=== PATIENT | female | born 1955 | race Caucasian/White ===

== ENCOUNTER 2019-11-22 19:50 | Emergency (ER) | payer BC ==
[2019-11-22 20:05] VITALS: O2SAT 97
--- NOTE | 2019-11-22 21:15 | ERPHSYRPT ---
- History of Present Illness Time Seen by Provider: 11/22/19 20:10 Source: patient Exam Limitations: no limitations Patient Subjective Stated Complaint: pt states that she fell out of the back door this morning, pt states that the pain has increased throughtout the day Triage Nursing Assessment: pt ambulated into the er, pt is axo x3, c/o rt ankle injury, states pain 3/10, limp with ambulation, rt ankle swollen, tenderness to ankle and bottom of the foot, strong pedal pulses, good cap refill, hypertensive Physician History: Patient is a 64-year-old female presents to our ED with complaints of pain to her ankle. Patient was walking outdoors carrying bottles of water and ice when she inverted her right ankle while descending a step. Patient felt. No other injuries reported. No BHT or LOC. No neck pain. Cervical spine cleared clinically. Patient denies back hip and knee pain. Pain is located primarily at the lateral aspect of the right ankle. Pain well localized. Pain reproduced with movement and palpation. Pain improved with rest. Patient is otherwise healthy. She voices no other complaints at this time. Patient rates pain 3 out of 10 at rest. Patient declined pain medication. Method of Injury: twisted Occurred: this afternoon Quality: constant Severity of Pain-Max: moderate Severity of Pain-Current: mild Lower Extremities Pain: ankle: right Modifying Factors: Improves With: movement, rest Associated Symptoms: unable to bear weight Allergies/Adverse Reactions: No Known Drug Allergies Allergy (Verified 11/22/19 19:57) Home Medications: Codeine/Butalbital/ASA/Caffein [Ascomp with Codeine Capsule] 1 each PO PRN 05/18/12 [History] Sumatriptan Succinate [Imitrex] 100 mg PO PRN 05/18/12 [History] Aripiprazole [Abilify] 5 mg PO HS 11/22/19 [History] Atorvastatin Calcium 40 mg PO HS 11/22/19 [History] Escitalopram Oxalate [Lexapro] 20 mg PO HS 11/22/19 [History] Losartan Potassium [Cozaar] 50 mg PO HS 11/22/19 [History] Hx Tetanus, Diphtheria Vaccination/Date Given: Yes Hx Influenza Vaccination/Date Given: Yes Hx Pneumococcal Vaccination/Date Given: No Travel Risk - International Travel Have you traveled outside of the country in past 3 weeks: No - Coronavirus Screening Close contact with a COVID-19 positive Pt in past 14-21 Days: No - Review of Systems Constitutional: No Symptoms, No Fever, No Chills Eyes: No Symptoms Ears, Nose, & Throat: No Symptoms Respiratory: No Symptoms, No Cough, No Dyspnea Cardiac: No Symptoms, No Chest Pain, No Edema, No Syncope Abdominal/Gastrointestinal: No Symptoms, No Abdominal Pain, No Nausea, No Vomiting, No Diarrhea Genitourinary Symptoms: No Symptoms, No Dysuria Musculoskeletal: No Symptoms, No Back Pain, No Neck Pain Skin: No Symptoms, No Rash Neurological: No Symptoms, No Dizziness, No Focal Weakness, No Sensory Changes Psychological: No Symptoms Endocrine: No Symptoms Hematologic/Lymphatic: No Symptoms Immunological/Allergic: No Symptoms All Other Systems: Reviewed and Negative - Past Medical History Pertinent Past Medical History: Yes Neurological History: Migraines ENT History: No Pertinent History Cardiac History: Other Respiratory History: No Pertinent History Endocrine Medical History: No Pertinent History Musculoskeletal History: No Pertinent History GI Medical History: No Pertinent History History: No Pertinent History Psycho-Social History: Depression Female Reproductive Disorders: No Pertinent History Other Medical History: RBBB - Past Surgical History Past Surgical History: Yes Neuro Surgical History: No Pertinent History Cardiac: No Pertinent History Respiratory: No Pertinent History Gastrointestinal: Appendectomy Genitourinary: No Pertinent History Musculoskeletal: No Pertinent History Female Surgical History: Hysterectomy Other Surgical History: tubal, sinus surgery, tonsil, breast biopsy - Social History Smoking Status: Never smoker Exposure to second hand smoke: No Drug Use: none Patient Lives Alone: No - Female History Hx Now: No - Nursing Vital Signs Nursing Vital Signs: Initial Vital Signs Temperature 97.4 F 11/22/19 19:57 Pulse Rate 89 11/22/19 19:57 Respiratory Rate 18 11/22/19 19:57 Blood Pressure 167/74 11/22/19 19:57 O2 Sat by Pulse Oximetry 97 11/22/19 19:57 Pain Scale Pain Intensity 3 - Physical Exam General Appearance: alert Eyes, Ears, Nose, Throat Exam: moist mucous membranes Neck Exam: non-tender, supple Cardiovascular/Respiratory Exam: chest non-tender, normal breath sounds, regular rate/rhythm, no respiratory distress Gastrointestinal/Abdominal Exam: non-tender, guarding Back Exam: normal inspection, No vertebral tenderness Hips Exam: bilateral: non-tender, normal inspection, normal range of motion, no evidence of injury Legs Exam: bilateral leg: non-tender, normal inspection, normal range of motion, no evidence of injury Knees Exam: bilateral knee: non-tender, normal inspection, normal range of motion, no evidence of injury Ankle Exam: right ankle: bone tenderness, limited range of motion, pain, swelling (Involved extremities neurovascular intact distally. Compartments are soft. Cap refill less than 2 seconds. Overlying soft tissue intact.), left ankle: non-tender, normal inspection, normal range of motion, no evidence of injury Foot Exam: bilateral foot: non-tender, normal inspection, normal range of motion, no evidence of injury (Mild tenderness at the arch of the left foot. Overlying soft tissue intact. No signs of trauma.) Neuro/Tendon Exam: normal sensation, normal motor functions Mental Status Exam: alert, oriented x 3, cooperative Skin Exam: normal color, warm, dry SpO2 Interpretation: normal SpO2: 97 O2 Delivery: Room Air - Course Nursing assessment & vital signs reviewed: Yes - Radiology Exams Ankle X-ray Interpretation: Interpreted by me (Nondisplaced fracture distal tip of the right fibula.) Ordered Tests: Active Orders 24 hr Category Date Time Status ANKLE (3 VIEWS) Stat Exams 11/22/19 Ordered - Progress Progress: improved Progress Note: 11/22/19 21:17 X-ray reveals fractured distal tip of right fibula. X-ray otherwise within normal limits. The fracture is closed. Patient declined pain medication. Post mold sugar tong placed. Patient declined crutches as she has crutches at home. Patient was wheeled to her vehicle. patient will maintain nonweightbearing until told otherwise by her orthopedic doctor. Patient neurovascular intact distally post splint application patient given a referral to our orthopedic clinic. Plan of care discussed with patient. She agrees to follow-up with orthopedic clinic tomorrow as planned. Patient voices no other complaints concerns at this time. Counseled pt/family regarding: diagnosis, need for follow-up, rad results - Departure Departure Disposition: Home Clinical Impression: Right fibular fracture, Ankle sprain, Fall Condition: Stable Critical Care Time: No Referrals: DOCTOR,NO FAMILY [Primary Care Provider] - Additional Instructions: Discharge/Care Plan GEOFFREY ROPER was seen on 11/22/19 in the Emergency Room. The patient was counseled regarding Diagnosis,Lab results, Imaging studies, need for follow up and when to return to the Emergency Room. Prescriptions given: Discharge Note I have spoken with the patient and/or caregivers. I have explained the patient's condition, diagnosis and treatment plan based on the information available to me at this time. I have answered the patient's and/or caregiver's questions and addressed any concerns. The patient and/or caregivers have as good understanding of the patient's diagnosis, condition and treatment plan as can be expected at t his point. The vital signs have been stable. The patient's condition is stable and appropriate for discharge from the emergency department. The patient will pursue further outpatient evaluation with the primary care physician or other designated or consulting physician as outlined in the discharge instructions. The patient and/or caregivers are agreeable to this plan of care and follow-up instructions have been explained in detail. The patient and/or caregivers have received these instruction. The patient/and or caregivers are aware that any significant change in condition or worsening of symptoms should prompt an immediate return to this or the closest emergency department or call 911. Outpatient Orders: Ortho Referral Time Frame: 1 Day, Facility: [facility], Location: [facility]
[2019-11-22 21:22] VITALS: BP 126/59; PULSE 68
--- NOTE | 2019-11-23 09:00 | XRAY ---
Indication: Pain and swelling following fall. Comparison: None 3 view right ankle demonstrates nondisplaced lateral malleolus tip fracture with anterolateral soft tissue swelling. No other bony, articular, or soft tissue abnormalities.
== END 2019-11-22 21:24 | disposition home or self-care (01) ==
LOC: ED 19:50
DX: S82.401A Unspecified fracture of shaft of right fibula, initial encounter for closed fracture (principal); S93.401A Sprain of unspecified ligament of right ankle, initial encounter; W10.8XXA Fall (on) (from) other stairs and steps, initial encounter
CPT/HCPCS: 73610; 99283

== ENCOUNTER 2021-11-21 08:02 | Emergency (ER) | payer BC ==
[2021-11-21] MEDS ORDERED: BABY ASPIRIN 81 MG CHEW PO ONE (08:15)
[2021-11-21] MEDS ORDERED: Ativan 2 MG/1 ML VIAL IV ONE (08:16)
[2021-11-21 08:19] VITALS: O2SAT 98
[2021-11-21] MEDS ORDERED: Ativan 2 MG/1 ML VIAL ONE (08:21)
[2021-11-21] MEDS ORDERED: BABY ASPIRIN 81 MG CHEW ONE (08:21)
[2021-11-21 08:27] LABS: Absolute Neutrophil Ct (ANC) 1.87 x10^3/uL (1.4-6.9); Basophil (Absolute #) 0.03 x10^3/uL (0-0.4); Eosinophil % 2.3 % (0.00-5.0); Hematocrit 42.4 % (35-47); Hemoglobin 13.9 g/dL (12.0-16.0); Lymphocyte (Absolute #) 1.91 x10^3/uL (1.0-4.6); Lymphocytes % 44.5 % (24.0-44.0); Mean Cell Volume 98.8 fL (78-100); Mean Corpuscular Hemoglobin 32.4 pg (26-32); Mean Corpuscular Hgb Concent. 32.8 g/dL (32-36); Mean Platelet Volume 9.1 fL (7.5-11.0); Monocyte (Absolute #) 0.38 x10^3/uL (0.0-1.3); Monocytes % 8.9 % (0.0-12.0); Neutrophil % 43.6 % (36.0-66.0); Platelet Count 282 x10^3/uL (150-450); Red Blood Count 4.29 x10^6/uL (4.1-5.4); White Blood Count 4.3 x10^3/uL (4.0-10.5)
--- NOTE | 2021-11-21 08:43 | ERPHSYRPT ---
- History of Present Illness Time Seen by Provider: 11/21/21 08:06 Source: patient Exam Limitations: no limitations Patient Subjective Stated Complaint: Left arm pain Triage Nursing Assessment: Patient ambulated back to ED and transferred self to bed. Patient A+O X 3. Patient's skin pink, warm and dry. Patient complains of left arm pain from fingers to shoulder 9/10 constant burning pain. Patient states the pain woke her up from sleep. Patient denies recent trauma or injury to left arm. Patient denies SOB, dizziness or chest pain. Physician History: Patient here with left arm pain, burning sensation. States it starts in her fingertips and goes to her left elbow. No trauma, falls, fever, chills. No known heart history. History of several antianxiety and depression medications. Occurred: just prior to arrival, this morning Method of Injury: unknown Quality: constant Severity of Pain-Max: mild Severity of Pain-Current: mild Extremities Pain Location: shoulder: left, arm: left, elbow: left, forearm: left, wrist: left, hand: left, thumb: left, 2nd finger: left, 3rd finger: left, 4th finger: left, 5th finger: left, other: left Modifying Factors: Improves With: nothing Associated Symptoms: none Allergies/Adverse Reactions: No Known Drug Allergies Allergy (Verified 11/21/21 08:05) Home Medications: SUMAtriptan succinate [Imitrex] 100 mg PO BID PRN PRN 05/18/12 [History] ARIPiprazole [Abilify] 5 mg PO HS 11/22/19 [History] Atorvastatin Calcium 40 mg PO HS 11/22/19 [History] Escitalopram Oxalate [Lexapro] 20 mg PO HS 11/22/19 [History] Losartan Potassium [Cozaar] 50 mg PO HS 11/22/19 [History] Hx Tetanus, Diphtheria Vaccination/Date Given: Yes Hx Influenza Vaccination/Date Given: Yes Hx Pneumococcal Vaccination/Date Given: No Immunizations Up to Date: Yes Travel Risk - International Travel Have you traveled outside of the country in past 3 weeks: No - Coronavirus Screening Are you exhibiting any of the following symptoms?: No Close contact with a COVID-19 positive Pt in past 14-21 Days: No - Vaccine Status Have you recieved a Covid-19 vaccination: Yes Manager Placement: Moderna - Vaccination Dates Date of 2cond Vaccination (if applicable): na - Review of Systems Constitutional: No Fever, No Chills Eyes: No Symptoms Ears, Nose, & Throat: No Symptoms Respiratory: No Cough, No Dyspnea Cardiac: No Chest Pain, No Edema, No Syncope Abdominal/Gastrointestinal: No Abdominal Pain, No Nausea, No Vomiting, No Diarrhea Genitourinary Symptoms: No Dysuria Musculoskeletal: Other (Left arm pain), No Back Pain, No Neck Pain Skin: No Rash Neurological: No Dizziness, No Focal Weakness, No Sensory Changes Psychological: No Symptoms Endocrine: No Symptoms All Other Systems: Reviewed and Negative - Past Medical History Pertinent Past Medical History: Yes Neurological History: Migraines ENT History: No Pertinent History Cardiac History: Other Respiratory History: No Pertinent History Endocrine Medical History: No Pertinent History Musculoskeletal History: No Pertinent History GI Medical History: No Pertinent History History: No Pertinent History Psycho-Social History: Depression Female Reproductive Disorders: No Pertinent History Other Medical History: RBBB - Past Surgical History Past Surgical History: Yes Neuro Surgical History: No Pertinent History Cardiac: No Pertinent History Respiratory: No Pertinent History Gastrointestinal: Appendectomy Genitourinary: No Pertinent History Musculoskeletal: No Pertinent History Female Surgical History: Hysterectomy Other Surgical History: tubal, sinus surgery, tonsil, breast biopsy - Social History Smoking Status: Never smoker Exposure to second hand smoke: No Drug Use: none Patient Lives Alone: No - Nursing Vital Signs Nursing Vital Signs: Initial Vital Signs Temperature 96.2 F 11/21/21 08:09 Pulse Rate 90 11/21/21 08:09 Respiratory Rate 18 11/21/21 08:09 Blood Pressure 149/59 11/21/21 08:09 O2 Sat by Pulse Oximetry 98 11/21/21 08:09 Pain Scale Pain Intensity 9 - Physical Exam General Appearance: alert Eyes, Ears, Nose, Throat Exam: moist mucous membranes Neck Exam: non-tender, supple Cardiovascular/Respiratory Exam: chest non-tender, normal breath sounds, regular rate/rhythm, no respiratory distress Abdominal Exam: non-tender, No guarding Back Exam: normal inspection, No vertebral tenderness Elbow/Forearm Exam: normal inspection (Normal inspection, full range of motion with no pain. 2+ pulses.) Neuro/Tendon Exam: normal sensation, normal motor functions Mental Status Exam: alert, oriented x 3, cooperative Skin Exam: normal color, warm, dry SpO2: 98 - Course Nursing assessment & vital signs reviewed: Yes EKG Interpreted by Me: Sinus Rhythm Ordered Tests: Active Orders 24 hr Category Date Time Status EKG-ER Only STAT Care 11/21/21 08:15 Active IV Insertion STAT Care 11/21/21 08:15 Active CBC W DIFF Stat Lab 11/21/21 08:25 Completed CMP Stat Lab 11/21/21 08:25 Completed NT PRO BNP Stat Lab 11/21/21 08:25 Completed TROPONIN Q4H Lab 11/21/21 08:25 Completed TROPONIN Q4H Lab 11/21/21 12:15 Ordered TROPONIN Q4H Lab 11/21/21 16:15 Ordered Medication Summary Discontinued Medications Generic Name Dose Route Start Last Admin Trade Name Freq PRN Reason Stop Dose Admin Aspirin 324 mg 11/21/21 08:15 11/21/21 08:22 Aspirin 81 Mg Tab.Chew PO 11/21/21 08:16 324 mg STAT ONE Administration Aspirin Confirm 11/21/21 08:21 Aspirin 81 Mg Tab.Chew Administered 11/21/21 08:22 Dose 324 mg .ROUTE .STK-MED ONE Lorazepam 1 mg 11/21/21 08:16 11/21/21 08:23 Lorazepam 2 Mg/1 Ml 2 Mg Vial IV 11/21/21 08:17 1 mg STAT ONE Administration Lorazepam Confirm 11/21/21 08:21 Lorazepam 2 Mg/1 Ml 2 Mg Vial Administered 11/21/21 08:22 Dose 2 mg .ROUTE .STK-MED ONE Lab/Rad Data: Laboratory Result Diagrams 11/21/21 08:25 11/21/21 08:25 Laboratory Results 11/21/21 11/21/21 11/21/21 Range/Units 08:25 08:25 08:25 WBC 4.3 (4.0-10.5) x10^3/uL RBC 4.29 (4.1-5.4) x10^6/uL Hgb 13.9 (12.0-16.0) g/dL Hct 42.4 (35-47) % MCV 98.8 (78-100) fL MCH 32.4 H (26-32) pg MCHC 32.8 (32-36) g/dL RDW 12.0 (11.5-14.0) % Plt Count 282 (150-450) x10^3/uL MPV 9.1 (7.5-11.0) fL Gran % 43.6 (36.0-66.0) % Immature Gran % (Auto) 0.0 (0.00-0.4) % Nucleat RBC Rel Count 0.0 (0.00-0.1) % Eos # (Auto) 0.10 (0-0.5) x10^3/uL Immature Gran # (Auto) 0.00 (0.00-0.03) x10^3u/L Absolute Lymphs (auto) 1.91 (1.0-4.6) x10^3/uL Absolute Monos (auto) 0.38 (0.0-1.3) x10^3/uL Absolute Nucleated RBC 0.00 (0.00-0.01) x10^3u/L Lymphocytes % 44.5 H (24.0-44.0) % Monocytes % 8.9 (0.0-12.0) % Eosinophils % 2.3 (0.00-5.0) % Basophils % 0.7 (0.0-0.4) % Absolute Granulocytes 1.87 (1.4-6.9) x10^3/uL Basophils # 0.03 (0-0.4) x10^3/uL Sodium 138 (137-145) mmol/L Potassium 3.8 (3.5-5.1) mmol/L Chloride 106 (98-107) mmol/L Carbon Dioxide 22 (22-30) mmol/L Anion Gap 14.2 (5-15) MEQ/L BUN 13 (7-17) mg/dL Creatinine 0.96 (0.52-1.04) mg/dL Estimated GFR > 60.0 ML/MIN Glucose 126 H (74-106) mg/dL Calcium 9.6 (8.4-10.2) mg/dL Total Bilirubin 0.60 (0.2-1.3) mg/dL AST 40 H (14-36) U/L ALT 44 H (0-35) U/L Alkaline Phosphatase 79 (38-126) U/L Troponin I < 0.012 (0.000-0.034) ng/mL NT-Pro-B Natriuret Pep 28.7 (0-900) pg/mL Serum Total Protein 7.2 (6.3-8.2) g/dL Albumin 4.1 (3.5-5.0) g/dL - Progress Progress: unchanged Progress Note: 11/21/21 08:[address] obvious [address] changes. We will still obtain a troponin, basic labs, Ativan in case there is a component of anxiety to this. 11/21/21 09:26 Troponin negative. Symptoms completely resolved with IV Ativan. Labs, CBC unremarkable. Patient states that she feels much improved. Plan for discharge home. Patient will return here for any new or changing symptoms. Close follow- up with her PCP. - Departure Departure Disposition: Home Clinical Impression: Left arm pain Condition: Stable Critical Care Time: No Referrals: SILVIA ARCHER [Primary Care Provider] - Follow up/PCP as directed Instructions: Exercises for Upper Back Pain
[2021-11-21 08:49] LABS: ALBUMIN 4.1 g/dL (3.5-5.0); ALKALINE PHOSPHATASE 79 U/L (38-126); ANION GAP 14.2 MEQ/L (5-15); BLOOD UREA NITROGEN 13 mg/dL (7-17); CHLORIDE 106 mmol/L (98-107); Calcium 9.6 mg/dL (8.4-10.2); Carbon Dioxide 22 mmol/L (22-30); Creatinine 1 0.96 mg/dL (0.52-1.04); EST GLOMERULAR FILTRATION RATE > 60.0 ML/MIN; Glucose 126 mg/dL (74-106); NT PRO BNP 28.7 pg/mL (0-900); Potassium 3.8 mmol/L (3.5-5.1); SGOT/AST 40 U/L (14-36); SGPT/ALT 44 U/L (0-35); SODIUM 138 mmol/L (137-145); Total Protein 7.2 g/dL (6.3-8.2)
[2021-11-21 09:28] VITALS: BP 144/72
[2021-11-21 09:40] VITALS: PULSE 64
== END 2021-11-21 09:40 | disposition home or self-care (01) ==
LOC: ED 08:02
DX: M79.632 Pain in left forearm (principal); Z79.899 Other long term (current) drug therapy
CPT/HCPCS: 36000; 36415; 80053; 83880; 84484; 85025; 93005; 96374; 99284; J2060; A9270-GY